=== PATIENT | male | born 1965 | race African-American/Black ===

== ENCOUNTER 2022-09-05 03:34 | Emergency (ER) | payer MEDICAID ==
[~2022-09-05] VITALS: Ht 180.3 cm; Wt 70.0 kg
[2022-09-05 04:35] LABS: BASOPHILS % 1.2 % (0.0-2.0); HEMATOCRIT. 37.3 % (42.0-52.0); HEMOGLOBIN. 12.5 g/dL (14.0-18.0); LYMPHOCYTES % 53.1 % (20.0-50.0); MEAN CORPUSCULAR HEMOGLOBIN 31.2 pg (28.0-32.0); MEAN CORPUSCULAR VOLUME 93.2 fL (80.0-94.0); MEAN PLATELET VOLUME 8.5 fl (7.4-10.4); MONOCYTES % 9.9 % (2.0-8.0); NEUTROPHILS % 29.8 % (40.0-76.0); PLATELET 168 x1000/uL (130-400); RED CELL DISTRIBUTION WIDTH 14.1 % (11.6-14.6)
[2022-09-05 04:47] LABS: CHLORIDE 105 mEq/L (98-107)
[2022-09-05] MEDS ORDERED: PANTOPRAZOLE SODIUM 40 MG/VIAL IV STA (05:38)
[2022-09-05] MEDS ORDERED: ONDANSETRON HCL 4MG/2ML INJ IV STA (05:38)
[2022-09-05] MEDS ORDERED: MORPHINE SULFATE 4 MG/ML CPJ (NOT FOR IM USE) IV STA (05:38)
[2022-09-05] MEDS ORDERED: SODIUM CHLORIDE 0.9% 1,000 ML IV ONE (05:45)
[2022-09-05] MEDS ORDERED: IOHEXOL-300 100 ML BOTTLE ONE (07:05)
[2022-09-05 09:52] LABS: CLARITY URINE CLEAR (CLEAR); COLOR URINE YELLOW (YELLOW); KETONES URINE NEGATIVE (NEGATIVE); LEUKOCYTE ESTERASE URINE TRACE (NEGATIVE); NITRITE URINE NEGATIVE (NEGATIVE); OCCULT BLOOD URINE NEGATIVE (NEGATIVE); PH URINE 6.5 (4.5-8.0); PROTEIN URINE NEGATIVE (NEGATIVE); SPECIFIC GRAVITY URINE 1.056 (1.005-1.030)
[2022-09-05] MEDS ORDERED: PROT40 MT (10:48)
[2022-09-05] MEDS ORDERED: ONDA4TAB11 PO (10:48)
[2022-09-05] MEDS ORDERED: TRAM50TA3 MT (10:48)
[2022-09-05] MEDS ORDERED: CIPR-263 MT (10:49)
[2022-09-05 11:15] VITALS: BP 115/65
== END 2022-09-05 11:29 | disposition home or self-care (01) ==
LOC: ER 03:38
DX: N39.0 Urinary tract infection, site not specified (principal); R10.33 Periumbilical pain; Z85.46 Personal history of malignant neoplasm of prostate
CPT/HCPCS: 36415; 74177; 80053; 81003; 83690; 85025; 87086; 93005; 96361; 96374; 96375; 99285; C9113; J2270; J2405; J7030; Q9967; Z7610

== ENCOUNTER 2022-11-15 09:16 | Emergency (ER) | payer MEDICAID ==
[~2022-11-15] VITALS: Ht 182.9 cm; Wt 68.0 kg
[~2022-11-15 09:16] MED LIST: CIPR-263 MT; ONDA4TAB11 PO; PROT40 MT; TRAM50TA3 MT
[2022-11-15 09:21] VITALS: BP 124/74; PULSE 65; RESP 16; TEMP 98.5; O2SAT 98
[2022-11-15] MEDS ORDERED: MAGNESIUM/ALUMINUM HYDROXIDE/SIMETHICONE 30ML UDC PO STA (09:41)
[2022-11-15 10:28] LABS: EOSINOPHILS % 0.9 % (0.0-5.0); HEMATOCRIT. 42.3 % (42.0-52.0); HEMOGLOBIN. 14.7 g/dL (14.0-18.0); LYMPHOCYTES % 25.5 % (20.0-50.0); MEAN CORPUSCULAR VOLUME 92.4 fL (80.0-94.0); MONOCYTES % 8.7 % (2.0-8.0); NEUTROPHILS % 63.9 % (40.0-76.0); RED BLOOD CELL COUNT 4.58 mill/uL (4.7-6.1); RED CELL DISTRIBUTION WIDTH 12.6 % (11.6-14.6)
[2022-11-15 10:41] LABS: CHLORIDE 106 mEq/L (98-107)
[2022-11-15 10:48] LABS: ETHANOL BLOOD < 10 mg/dL (-10)
[2022-11-15] MEDS ORDERED: MAGNESIUM/ALUMINUM HYDROXIDE/SIMETHICONE 30ML UDC PO NR (11:30)
[2022-11-15 12:04] LABS: PLATELET 140 x1000/uL (130-400)
[2022-11-15] MEDS ORDERED: OMEP40CA20 MT (12:35)
== END 2022-11-15 12:47 | disposition home or self-care (01) ==
LOC: ER 09:16
DX: R10.9 Unspecified abdominal pain (principal); I10 Essential (primary) hypertension; J45.909 Unspecified asthma, uncomplicated
CPT/HCPCS: 36415; 74176; 80053; 80320; 85025; 99284; G0480